=== PATIENT | male | born 1985 | race Caucasian/White ===

== ENCOUNTER 2017-01-28 17:47 | Emergency (ER) | payer OTHER ==
--- NOTE | 2017-01-28 18:19 | ER Document Report ---
ED Medical Screen (RME) - General Stated Complaint: ABDOMINAL PAIN, VOMITING BLOOD Notes: 31 yo male c/o abdominal pain, RUQ and epigastric. started throwing up about an hour ago, felt acute pain. pt noted bright red blood in emesis. pt reports being treated for ruptured ulcer 01/18. treated in [place]. 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
[2017-01-28 18:50] LABS: ABSOLUTE BASOPHILS # (AUTO) 0.1 10^3/uL (0.0-0.2); ABSOLUTE EOSINOPHILS # (AUTO) 0.2 10^3/uL (0.0-0.6); ABSOLUTE LYMPHOCYTES (AUTO) 1.6 10^3/uL (0.5-4.7); ABSOLUTE MONOCYTES (AUTO) 0.5 10^3/uL (0.1-1.4); BASOPHILS % (AUTO) 0.7 % (0-2); EOSINOPHILS % (AUTO) 2.1 % (0-6); HEMATOCRIT 28.7 % (37.9-51.0); HEMOGLOBIN 9.8 g/dL (13.5-17.0); HGB HCT DIFFERENCE 0.7; LYMPHOCYTES % (AUTO) 19.4 % (13-45); MEAN CORPUSCULAR HEMOGLOBIN 29.8 pg (27.0-33.4); MEAN CORPUSCULAR HGB CONC 34.3 g/dL (32.0-36.0); MEAN CORPUSCULAR VOLUME 87 fl (80-97); MONOCYTES % (AUTO) 6.2 % (3-13); SEGMENTED NEUTROPHILS % (AUTO) 71.6 % (42-78); WHITE BLOOD COUNT 8.4 10^3/uL (4.0-10.5)
[2017-01-28 19:01] LABS: ALANINE AMINOTRANSFERASE 43 U/L (21-72); ALBUMIN 3.5 g/dL (3.5-5.0); ALKALINE PHOSPHATASE 69 U/L (38-126); ANION GAP 11 (5-19); ASPARTATE AMINO TRANSFERASE 23 U/L (17-59); BILIRUBIN,TOTAL 0.4 mg/dL (0.2-1.3); BLOOD UREA NITROGEN 11 mg/dL (7-20); CARBON DIOXIDE 23 mmol/L (22-30); CHLORIDE 109 mmol/L (98-107); CREATININE RESULT 1.09 mg/dL (0.52-1.25); GLUCOSE 118 mg/dL (75-110); POTASSIUM 3.5 mmol/L (3.6-5.0); SODIUM 142.6 mmol/L (137-145); TOTAL PROTEIN 5.6 g/dL (6.3-8.2)
--- NOTE | 2017-01-28 20:50 | ER Document Report ---
ED General - General Chief Complaint: Abdominal Pain Stated Complaint: ABDOMINAL PAIN, VOMITING BLOOD Mode of Arrival: Ambulatory Information source: Patient Notes: Patient presents to the emergency department with complaints of abdominal pain. Patient reports that he is visiting from [place]. Patient reports a week and half ago when he was in [place], he experienced a bleeding ulcer and was scoped. He reports the ulcer was cauterized and he felt a lot better. He reports today he was helping his brother move and felt something. He is now having multiple episodes of bloody vomiting and diarrhea. Patient last ate at around noon. TRAVEL OUTSIDE OF THE [place] IN LAST 30 DAYS: No - HPI Onset: This afternoon Quality of pain: Achy Severity: Severe Pain Level: 5 Associated symptoms: Diarrhea, Vomiting Exacerbated by: Denies Relieved by: Denies Similar symptoms previously: Yes Recently seen / treated by doctor: Yes - Related Data Allergies/Adverse Reactions: hydroxyzine [From Vistaril] Allergy (Verified 01/28/17 18:14) Penicillins Allergy (Verified 01/28/17 18:14) sertraline [From Zoloft] Allergy (Verified 01/28/17 18:14) Past Medical History - General Information source: Patient - Social History Smoking Status: Never Smoker Cigarette use (# per day): No Chew tobacco use (# tins/day): No Frequency of alcohol use: None Drug Abuse: None Lives with: Family Family History: Reviewed & Not Pertinent Patient has suicidal ideation: No Patient has homicidal ideation: No Pulmonary Medical History: Reports: Hx Asthma Renal/ Medical History: Denies: Hx Peritoneal Dialysis GI Medical History: Reports: Hx Ulcer Past Surgical History: Reports: Hx Gastric Bypass Surgery Review of Systems - Review of Systems Notes: Review HPI for review of systems., All other systems negative Physical Exam - Vital signs Vitals: Temp Pulse Resp BP Pulse Ox 97.9 F 136 H 14 110/72 100 01/28/17 17:57 01/28/17 17:57 01/28/17 17:57 01/28/17 17:57 01/28/17 17:57 - Notes Notes: PHYSICAL EXAMINATION: GENERAL: Well-appearing and in no acute distress nontoxic looking HEAD: Atraumatic, normocephalic. EYES: Pupils equal round extraocular movements intact, sclera anicteric, conjunctiva are normal. ENT: nares patent, Moist mucous membranes. NECK: Normal range of motion, supple without lymphadenopathy LUNGS: CTAB and equal. No wheezes rales or rhonchi. HEART: Tachy without murmurs ABDOMEN: Soft, generalized tenderness. No guarding, no rebound BACK: Denies pain EXTREMITIES: Normal range of motion, no pitting edema. No cyanosis. NEUROLOGICAL: Cranial nerves grossly intact. Normal sensory/motor exams. PSYCH: Normal mood, normal affect. SKIN: Warm, Dry, normal turgor, no rashes or lesions noted Course - Re-evaluation Re-evalutation: 01/28/17 21:11 h/h 9.8/28.7, Patient was checked for rectal bleed. Patient was instructed on repeat H&H and morphine for the pain. 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 Protonix initiated, type and screen initiated. 01/28/17 22:25 Patient updated on second H&H. Patient reports he is feeling better after morphine. [facility] contacted for transfer 01/28/17 22:45 Dr Delia URRUTIA from [facility] returned call. He agree's patient needs to be transferred. Awaiting call from internal med. 01/28/17 23:15 Dr Chance returned call. She accepts patient, [facility] does have beds. Patient and family updated. 01/29/17 01:30 Pt doing well. No further vomiting /diarrhea. - Vital Signs Vital signs: Temp Pulse Resp BP Pulse Ox 97.9 F 97 14 118/72 100 01/28/17 17:57 01/28/17 20:20 01/29/17 01:01 01/29/17 01:01 01/29/17 01:01 - Laboratory Result Diagrams: 01/28/17 21:20 01/28/17 18:25 Laboratory results interpreted by me: 01/28/17 01/28/17 01/28/17 18:25 18:25 21:20 RBC 3.30 L 2.95 L Hgb 9.8 L 8.8 L Hct 28.7 L 25.5 L RDW 15.0 H 14.6 H Plt Count 545 H Potassium 3.5 L Chloride 109 H Glucose 118 H Total Protein 5.6 L Discharge - Discharge Clinical Impression: Vomiting and diarrhea GIB (gastrointestinal bleeding) Qualifiers: GI bleed type/associated pathology: unspecified gastrointestinal hemorrhage type Qualified Code(s): K92.2 - Gastrointestinal hemorrhage, unspecified Condition: Stable Disposition: [facility]
[2017-01-28] MEDS ORDERED: MORPHINE SULFATE 10 MG/ML INJ IV ONE (21:04)
[2017-01-28 21:32] LABS: HEMATOCRIT 25.5 % (37.9-51.0); HEMOGLOBIN 8.8 g/dL (13.5-17.0); HGB HCT DIFFERENCE 0.9; MEAN CORPUSCULAR HEMOGLOBIN 29.9 pg (27.0-33.4); MEAN CORPUSCULAR HGB CONC 34.6 g/dL (32.0-36.0); MEAN CORPUSCULAR VOLUME 87 fl (80-97); RED BLOOD COUNT 2.95 10^6/uL (4.35-5.55); RED CELL DISTRIBUTION WIDTH 14.6 % (11.5-14.0); WHITE BLOOD COUNT 8.4 10^3/uL (4.0-10.5)
[2017-01-28] MEDS ORDERED: PANTOPRAZOLE SODIUM 40 MG VIAL IV ONE (22:11)
[2017-01-28] MEDS ORDERED: PANTOPRAZOLE SODIUM 40 MG VIAL IV PRN (22:15)
[2017-01-29] MEDS ORDERED: MORPHINE SULFATE 10 MG/ML INJ IV ONE (00:29)
[2017-01-29 01:12] VITALS: BP 118/72
== END 2017-01-29 01:48 | disposition short-term general hospital (02) ==
LOC: ER 17:47
DX: K92.2 Gastrointestinal hemorrhage, unspecified (principal); K92.0 Hematemesis; R19.7 Diarrhea, unspecified; R10.9 Unspecified abdominal pain
CPT/HCPCS: 96376; 99285; 96375; 96365; 96366; 86900; 86901; 36415; 86850; 85025; 85027; 82272; 80053; 74022; J2270 ×2; S0164